=== PATIENT | male | born 1965 | race Caucasian/White ===

== ENCOUNTER 2018-02-06 09:41 | Outpatient (CLI) | payer BC | END 2018-02-06 09:42 | disposition home or self-care (01) | LOC: DTY/OP 09:41 | PROVIDERS: ATTEND Family Medicine | DX: E78.00 Pure hypercholesterolemia, unspecified (principal); R73.09 Other abnormal glucose; R73.03 Prediabetes | CPT/HCPCS: 97802 ==

== ENCOUNTER 2018-03-27 13:19 | Outpatient (CLI) | payer BC ==
--- NOTE | 2018-03-27 14:23 | RAD ---
2 VIEWS CHEST: Date: COMPARISON: None. HISTORY: Chest pain and reflux esophagus. FINDINGS: Two views of the chest show normal sized cardiomediastinal silhouette. There is no evidence of consol idation, mass, or pleural effusion. The bones are unremarkable. IMPRESSION: No evidence of acute cardiopulmonary disease. POS: [facility]
== END 2018-03-27 13:20 | disposition home or self-care (01) ==
LOC: BICRAD 13:19
PROVIDERS: ATTEND Internal Medicine Gastroenterology
DX: K21.0 Gastro-esophageal reflux disease with esophagitis (principal); R07.9 Chest pain, unspecified
CPT/HCPCS: 71046

== ENCOUNTER 2018-04-03 10:53 | Outpatient (CLI) | payer BC ==
--- NOTE | 2018-04-03 13:46 | CT ---
CT CHEST WITH CONTRAST: HISTORY: R07.9, chest pain; Q21.0, reflux. COMPARISON: Chest radiograph 03/27/2018. FINDINGS: The lungs are clear. No abnormal pulmonary nodule. No pneumothorax, effusion, or focal airspace con solidation. Thyroid is unremarkable. No mediastinal adenopathy. No pericardial effusion. There is a small hypo density hepatic segment 8. Measuring fluid attenuation, this is statistically likely a cyst, althoug h incompletely evaluated. The remainder of the upper abdomen is unremarkable. Ribs are without acute displaced fracture. The thoracic spine is unremarkable. The sternum and manu brium are intact. No significant sliding hiatal hernia. IMPRESSION: Normal examination of the chest. POS: [facility]
[2018-04-03] MEDS ORDERED: ISOVUE-370 76%-LOCM 1 ML ONE (16:21)
== END 2018-04-03 10:54 | disposition home or self-care (01) ==
LOC: BICCT 10:53
PROVIDERS: ATTEND Internal Medicine Gastroenterology
DX: K21.0 Gastro-esophageal reflux disease with esophagitis (principal); R07.9 Chest pain, unspecified; A63.0 Anogenital (venereal) warts; M25.549 Pain in joints of unspecified hand
CPT/HCPCS: 71260

== ENCOUNTER 2020-06-14 16:12 | Outpatient (CLI) | payer BC ==
--- NOTE | 2020-06-14 16:32 | RAD ---
EXAM: CHEST TWO VIEWS: 06/14/20 HISTORY: Chest pain. COMPARISON: 03/27/18. FINDINGS: Heart size is within normal limits. The lungs are clear. No confluent pneumonia, overt edema, or ple ural effusion. IMPRESSION: No significant acute intrathoracic disease. Stable from prior exam. POS: [facility]
== END 2020-06-14 16:13 | disposition home or self-care (01) ==
LOC: BICRAD 16:12
PROVIDERS: ATTEND Internal Medicine Gastroenterology
DX: R07.9 Chest pain, unspecified (principal)
CPT/HCPCS: 71046

== ENCOUNTER 2020-06-23 07:05 | Outpatient (CLI) | payer BC ==
[2020-06-23 18:28] LABS: SARS-CoV-2 PCR by NAA Not Detected (NotDetected)
== END 2020-06-23 07:06 | disposition home or self-care (01) ==
LOC: LABBT 07:05
PROVIDERS: ATTEND Internal Medicine Gastroenterology
DX: Z01.812 Encounter for preprocedural laboratory examination (principal); R07.9 Chest pain, unspecified; Z20.822 Contact with and (suspected) exposure to COVID-19
CPT/HCPCS: 87635; U0003; U0005

== ENCOUNTER → 2020-06-28 | Day surgery (SDC) | payer BC ==
[~2020-06-28] MED LIST: Iothalamate Meglumine 60% 50 ML VIAL FS ONE
== END ==
LOC: ENDO/OP 10:30
PROVIDERS: ATTEND Internal Medicine Gastroenterology
DX: R07.9 Chest pain, unspecified (principal); Z88.2 Allergy status to sulfonamides
CPT/HCPCS: 91034

== ENCOUNTER 2022-09-27 09:32 | Outpatient (CLI) | payer BC ==
[2022-09-27] MEDS ORDERED: Iopamidol 370 76% 100 ML VIAL ONE (10:24)
== END 2022-09-27 09:33 | disposition home or self-care (01) ==
LOC: BICCT 09:32
PROVIDERS: ATTEND Internal Medicine Gastroenterology
DX: R14.0 Abdominal distension (gaseous) (principal); M54.50 Low back pain, unspecified; R19.5 Other fecal abnormalities
CPT/HCPCS: 74177